=== PATIENT | female | born 1990 | race Caucasian/White ===

== ENCOUNTER 2023-07-17 16:58 | Emergency (ER) | payer MEDICAID ==
[~2023-07-17] VITALS: Ht 160 cm; Wt 68.0 kg
[2023-07-17 17:01] VITALS: BP_SYST 112; PULSE 79; RESP 18; TEMP 98.3; O2SAT 98
[2023-07-17 18:23] VITALS: BP_SYST 112; PULSE 79; RESP 18; TEMP 98.3; O2SAT 98
[2023-07-17] MEDS ORDERED: CEPH-548 PO (20:37)
[2023-07-17] MEDS ORDERED: IBUP-1969 PO (20:37)
== END 2023-07-17 20:40 | disposition home or self-care (01) ==
LOC: SED 16:58
DX: N61.1 Abscess of the breast and nipple (principal); Z88.2 Allergy status to sulfonamides; Z79.899 Other long term (current) drug therapy
CPT/HCPCS: 76642; 81025; 99284